=== PATIENT | male | born 1980 | race Caucasian/White ===

== ENCOUNTER → 2025-01-26 | Day surgery (SDC) | payer MEDICAID ==
[~2025-01-26] VITALS: Ht 165.1 cm; Wt 106.6 kg
[~2025-01-26] MED LIST: ACETAMINOPHEN 1,000MG/100ML PREMIX IV PRN; AMLO5TAB88 PO; BUPIVACAINE HCL/PF 0.5% (5MG/ML) 10ML ONE; DEXAMETHASONE 4MG/ML 1ML VIAL ONE; FAMOTIDINE 20MG/2ML VIAL IV PRN; FENTANYL CITRATE/PF 50MCG/ML 2ML VIAL ONE; HYDRALAZINE 20MG/ML VIAL IV PRN; HYDROMORPHONE HCL/PF 1MG/ML INJ IV PRN; HYDROMORPHONE HCL/PF 2MG/ML INJ ONE; LABETALOL 5MG/ML 4ML INJ IV PRN; LIP40 PO; MEPERIDINE HCL/PF 25MG/ML CPJ IV PRN; METF-414 PO; MIDAZOLAM HCL 2 MG/2 ML VIAL ONE; OLME20TA13 PO; ONDANSETRON HCL 4MG/2ML INJ IV PRN; ONDANSETRON HCL 4MG/2ML INJ ONE; PROPOFOL 200MG/20ML VIAL IV ONE; PROT40 PO; ROCURONIUM BROMIDE 10MG/ML VIAL 5ML IV ONE; SKIN ADHESIVE 0.7 GM EA TOP ONE
[2025-01-26] MEDS: SODIUM CHLORIDE 0.9% 1,000 ML IV SCH (06:23)
== END | disposition home or self-care (01) ==
LOC: OR 05:14
PROVIDERS: ATTEND Surgery
DX: K40.90 Unilateral inguinal hernia, without obstruction or gangrene, not specified as recurrent (principal); I10 Essential (primary) hypertension; E78.5 Hyperlipidemia, unspecified; E11.9 Type 2 diabetes mellitus without complications; E66.09 Other obesity due to excess calories; Z79.84 Long term (current) use of oral hypoglycemic drugs; Z98.890 Other specified postprocedural states; Z79.899 Other long term (current) drug therapy; Z68.39 Body mass index [BMI] 39.0-39.9, adult
CPT/HCPCS: 49505; 82962; J3010; J0665; J1100; J2250; J2405; J2704; J3490; J1171; C1781; J0131